=== PATIENT | female | born 2000 | race Caucasian/White ===

== ENCOUNTER 2022-02-04 16:39 | Observation (INO) | payer BC, OTHER ==
[2022-02-04] MEDS ORDERED: dexAMETHasone 4 MG TAB PO STA (17:07)
[2022-02-04] MEDS ORDERED: SODIUM CHLORIDE 0.9% 1,000 ML IV STA (17:08)
--- NOTE | 2022-02-04 17:17 | ED ---
General Adult HPI - General Chief complaint: Shortness of Breath Stated complaint: SOB,Headache,Congestion Time Seen by Provider: 02/04/22 16:47 Source: patient Mode of arrival: ambulatory Limitations: no limitations - History of Present Illness Initial comments: Dictation was produced using [employer] dictation software. please excuse any grammatical, word or spelling errors. Chief Complaint: 21-year-old female past medical history of asthma presents with worsening shortness of breath History of Present Illness: Patient is a 21-year-old female she is accompanied by mother. Patient is a history of asthma. She's been sick for the last 2-3 days. Patient was at urgent care earlier today where she was treated with a breathing treatment and IM injection of Solu-Medrol. Patient was told that she should go to the hospital for symptoms do not improve. Patient was at the urgent care 945 this morning. Patient does not feel any better and decided to come to the emergency room for further testing. She had swabbed for influenza a nd covered however she does not know the results of that. She also reports having had a 2 view chest x-ray that was allegedly unremarkable. Patient was not offered antibiotics. She reports associated nasal and chest congestion. She has a productive cough. The ROS documented in this emergency department record has been reviewed and confirmed by me. Those systems with pertinent positive or negative responses have been documented in the HPI. All other systems are other negative and/or noncontributory. PHYSICAL EXAM: General Impression: Alert and oriented x3, not in acute distress HEENT: Normocephalic atraumatic, extra-ocular movements intact, pupils equal and reactive to light bilaterally, mucous membranes moist. Cardiovascular: Heart regular rate and rhythm Chest: Able to complete full sentences, no retractions, no tachypnea, mild adnexal 3 wheezing Abdomen: abdomen soft, non-tender, non-distended, no organomegaly Musculoskeletal: Pulses present and equal in all extremities, no peripheral edema Motor: no focal deficits noted Neurological: CN II-XII grossly intact, no focal motor or sensory deficits noted Skin: Intact with no visualized rashes Psych: Normal affect and mood ED course: 21-year-old female presents emergency Department with 2-3 days of respiratory infectious symptoms with asthma exacerbation. Signs upon arrival shows heart rate 136, respiratory rate of 26, 92% on room air. Nursing notes and chart review was performed Laboratory evaluation obtained. Mild leukocytosis of 13.3. Metabolic panel is unremarkable. Panel labs negative. 4 panel viral PCR is negative. Chest x-ray is nonacute. Patient bedside after breathing treatment and Decadron. She still appears to be dyspneic. Lungs are significantly wheezy still. Disposition options were discussed with patient she is agreeable for observation admission with consultation pulmonology and further asthma care. My EKG interpretation: Ventricular rate 155, sinus tachycardia, VT interval 123, QRS 80, QTC 361. No VT prolongation, no QTC prolongation, no ST or T-wave changes noted. Critical care time 33 minutes - Related Data Home Medications Medication Instructions Recorded Confirmed Albuterol Inhaler [Ventolin Hfa 2 puff INHALATION RT-Q4H PRN 02/04/22 02/04/22 Inhaler] [id number]-Qu-Fs 03/09 1 tab PO DAILY 02/04/22 02/04/22 Allergies Allergy/AdvReac Type Severity Reaction Status Date / Time No Known Allergies Allergy Verified 02/04/22 16:45 Review of Systems ROS Statement: Those systems with pertinent positive or pertinent negative responses have been documented in the HPI. ROS Other: All systems not noted in ROS Statement are negative. Past Medical History Past Medical History: Asthma History of Any Multi-Drug Resistant Organisms: None Reported Past Surgical History: No Surgical Hx Reported Past Psychological History: No Psychological Hx Reported Smoking Status: Never smoker Past Alcohol Use History: Occasional Past Drug Use History: None Reported General Exam Limitations: no limitations Course Vital Signs 02/04/22 02/04/22 02/04/22 16:40 18:58 19:14 Temperature 98 F Pulse Rate 136 H 133 H 151 H Respiratory 26 H Rate Blood Pressure 137/83 O2 Sat by Pulse 92 L Oximetry 02/04/22 19:21 Temperature Pulse Rate 152 H Respiratory 22 Rate Blood Pressure 118/62 O2 Sat by Pulse 93 L Oximetry Medical Decision Making - Lab Data Result diagrams: 02/04/22 19:21 02/04/22 17:52 Lab Results 02/04/22 02/04/22 02/04/22 Range/Units 17:52 17:53 19:21 WBC 13.3 H (3.8-10.6) k/uL RBC 4.74 (3.80-5.40) m/uL Hgb 14.5 (11.4-16.0) gm/dL Hct 41.9 (34.0-46.0) % MCV 88.5 (80.0-100.0) fL MCH 30.6 (25.0-35.0) pg MCHC 34.5 (31.0-37.0) g/dL RDW 12.7 (11.5-15.5) % Plt Count 335 (150-450) k/uL MPV 8.3 Neutrophils % 92 % Lymphocytes % 6 % Monocytes % 1 % Eosinophils % 0 % Basophils % 0 % Neutrophils # 12.3 H (1.3-7.7) k/uL Lymphocytes # 0.8 L (1.0-4.8) k/uL Monocytes # 0.2 (0-1.0) k/uL Eosinophils # 0.1 (0-0.7) k/uL Basophils # 0.0 (0-0.2) k/uL Sodium 143 (137-145) mmol/L Potassium 4.3 (3.5-5.1) mmol/L Chloride 108 H (98-107) mmol/L Carbon Dioxide 20 L (22-30) mmol/L Anion Gap 15 mmol/L BUN 13 (7-17) mg/dL Creatinine 0.70 (0.52-1.04) mg/dL Est GFR (CKD-EPI)AfAm >90 (>60 ml/min/1.73 sqM) Est GFR (CKD-EPI)NonAf >90 (>60 ml/min/1.73 sqM) Glucose 170 H (74-99) mg/dL Calcium 9.7 (8.4-10.2) mg/dL Total Bilirubin 0.3 (0.2-1.3) mg/dL AST 24 (14-36) U/L ALT 28 (4-34) U/L Alkaline Phosphatase 74 (38-126) U/L Total Protein 8.5 H (6.3-8.2) g/dL Albumin 4.8 (3.5-5.0) g/dL HCG, Quant <2.4 mIU/mL Influenza Type A (PCR) Not Detected (Not Detectd) Influenza Type B (PCR) Not Detected (Not Detectd) RSV (PCR) Not Detected (Not Detectd) SARS-CoV-2 (PCR) Not Detected (Not Detectd) Disposition Clinical Impression: Asthma exacerbation Disposition: ADMITTED IP TO THIS HOSP Condition: Serious Referrals: Qamar Zapata DO [Primary Care Provider] - 1-2 days Decision Time: 19:46
--- NOTE | 2022-02-04 17:44 | XR ---
EXAMINATION TYPE: XR chest 2V DATE OF EXAM: 02/04/2022 5:34 PM COMPARISON: None TECHNIQUE: XR chest 2V Frontal and lateral views of the chest. CLINICAL INDICATION:Female, 21 years old with history of wheezing; FINDINGS: Lungs/Pleura: There is no evidence of pleural effusion, focal consolidation, or pneumothorax. Pulmonary vascularity: Unremarkable. Heart/mediastinum: Cardiomediastinal silhouette is unremarkable. Musculoskeletal: No acute osseous pathology. IMPRESSION: No acute cardiopulmonary disease/process.
[2022-02-04 18:24] LABS: AST 24 U/L (14-36); African American GFR (CKD) >90 (>60 ml/min/1.73 sqM); Albumin 4.8 g/dL (3.5-5.0); Alkaline Phosphatase 74 U/L (38-126); Anion Gap 15 mmol/L; Blood Urea Nitrogen 13 mg/dL (7-17); Calcium 9.7 mg/dL (8.4-10.2); Carbon Dioxide 20 mmol/L (22-30); Chloride 108 mmol/L (98-107); Glucose 170 mg/dL (74-99); Non-African American GFR(CKD) >90 (>60 ml/min/1.73 sqM); Potassium 4.3 mmol/L (3.5-5.1); Sodium 143 mmol/L (137-145); Total Bilirubin 0.3 mg/dL (0.2-1.3); Total Protein 8.5 g/dL (6.3-8.2)
[2022-02-04 18:35] LABS: ALT 28 U/L (4-34)
[2022-02-04 18:41] LABS: HCG,Quantitative Serum <2.4 mIU/mL
[2022-02-04] MEDS ORDERED: IPRATROPIUM-ALBUTEROL 3 ML NEB INHALATION STA (18:46)
[2022-02-04 19:36] LABS: Basophils % (A) 0 %; Eosinophils # (A) 0.1 k/uL (0-0.7); Eosinophils % (A) 0 %; HCT 41.9 % (34.0-46.0); HGB 14.5 gm/dL (11.4-16.0); Lymphocytes # (A) 0.8 k/uL (1.0-4.8); Lymphocytes % (A) 6 %; MCH 30.6 pg (25.0-35.0); MCHC 34.5 g/dL (31.0-37.0); MCV 88.5 fL (80.0-100.0); Mean Platelet Volume 8.3; Monocytes # (A) 0.2 k/uL (0-1.0); Monocytes % (A) 1 %; Neutrophils # (A) 12.3 k/uL (1.3-7.7); Neutrophils % (A) 92 %; Platelet Count 335 k/uL (150-450); RBC 4.74 m/uL (3.80-5.40); RDW 12.7 % (11.5-15.5); WBC 13.3 k/uL (3.8-10.6)
[2022-02-04] MEDS ORDERED: ACETAMINOPHEN TAB 325 MG TAB PO PRN (19:43)
[2022-02-04] MEDS ORDERED: NALOXONE 0.4 MG/ML 1 ML VIAL IVP PRN (19:43)
[2022-02-04] MEDS ORDERED: IPRATROPIUM-ALBUTEROL 3 ML NEB INHALATION SCH (20:00)
[2022-02-04] MEDS ORDERED: METOPROLOL TARTRATE 25 MG TAB PO STA (20:56)
[2022-02-04] MEDS ORDERED: ALBUTEROL NEBULIZED 2.5 MG/3 ML INHALATION PRN (20:56)
[2022-02-04] MEDS ORDERED: IPRATROPIUM-ALBUTEROL 3 ML NEB INHALATION PRN (20:57)
[2022-02-04] MEDS ORDERED: SODIUM CHLORIDE 0.9% 1,000 ML IV SCH (21:00)
[2022-02-04] MEDS ORDERED: AZITHROMYCIN 500 MG TAB PO SCH (21:00)
[2022-02-05] MEDS: IPRATROPIUM-ALBUTEROL 3 ML NEB INHALATION SCH ×2 (07:36→11:21)
[2022-02-05 08:13] VITALS: BP 111/76; RESP 16; TEMP 97.5
[2022-02-05] MEDS ORDERED: SYMBICORT 160-4.5 MCG INHALER INHALATION SCH (08:30)
[2022-02-05] MEDS ORDERED: predniSONE 20 MG TAB PO SCH (09:00)
[2022-02-05 11:34] VITALS: PULSE 104
--- NOTE | 2022-02-05 12:13 | P.CNPUL ---
History of Present Illness Consult date: 02/05/22 Requesting physician: Aneta Brasher Reason for consult: asthma Chief complaint: Shortness of breath, cough, congestion History of present illness: This is a very pleasant 21-year-old female patient with a known history of mild intermittent chronic bronchial asthma and is maintained on albuterol HFA only. She states she has been asthmatic for just a few years. She is triggered by cats, dogs and cold air usually. She is a nonsmoker. She has a 2-3 day history of increasing shortness of breath cough congestion on chest tightness and wheezing. She presented here to the emergency room yesterday for the same. A chest x-ray reveals no acute cardiopulmonary process. White count 13.3. Hemog lobin 14.5. Sodium 143. Potassium 4.3. BUN 13. Creatinine 0.70. Glucose 170. HCG was negative. Influenza screen negative. RSV screen negative. COVID-19 screen negative. She was initiated on DuoNeb inhalations. 0.9 normal saline at 50 MLS per hour. She is seen today in consultation on the regular medical floor. She is sitting up in bed. Awake and alert in no acute distress. Maintaining good O2 saturations in the 90s on 1 L of oxygen per nasal cannula. She's afebrile. Slightly tachycardic. No worsening shortness of breath, cough or congestion still with some bilateral end expiratory wheeze. Review of Systems REVIEW OF SYSTEMS: CONSTITUTIONAL: Denies any recent significant weight loss or weight gain. EYES: Denies change in vision. EARS, NOSE, MOUTH, THROAT: Denies headaches, denies sore throat. CARDIOVASCULAR: Denies chest pain, palpitations or syncopal episodes. RESPIRATORY: Positive for shortness of breath, cough, congestion no hemoptysis. GASTROINTESTINAL: Denies change in appetite, denies abdominal pain GENITOURINARY: Denies hematuria, denies infections. MUSKULOSKELETAL: Denies pain, denies swelling. INTEGUMENTARY: Denies rash, denies eczema. NEUROLOGICAL: Denies recent memory loss, no recent seizure activity. PSYCHIATRIC: Denies anxiety, denies depression. HEMATOLOGIC/LYMPHATIC: Denies anemia, denies enlarged lymph nodes. Past Medical History Past Medical History: Asthma History of Any Multi-Drug Resistant Organisms: None Reported Past Surgical History: No Surgical Hx Reported Past Psychological History: No Psychological Hx Reported Smoking Status: Never smoker Past Alcohol Use History: Occasional Past Drug Use History: None Reported Medications and Allergies Home Medications Medication Instructions Recorded Confirmed Type Albuterol Inhaler [Ventolin Hfa 2 puff INHALATION RT-Q4H PRN 02/04/22 02/04/22 History Inhaler] Mpxyki-Bj-[id number] 03/09 1 tab PO DAILY 02/04/22 02/04/22 History Allergies Allergy/AdvReac Type Severity Reaction Status Date / Time No Known Allergies Allergy Verified 02/04/22 16:45 Physical Exam Vitals: Vital Signs Temp Pulse Pulse Resp BP BP Pulse Ox 02/05/22 11:34 104 H 02/05/22 11:22 100 02/05/22 07:46 107 H 02/05/22 07:45 97.5 F L 125 H 16 111/76 94 L 02/05/22 07:41 95 02/05/22 07:36 103 H 02/05/22 07:10 93 20 113/79 93 L 02/05/22 06:48 98 02/05/22 06:12 116 H 02/05/22 06:03 97.9 F 02/05/22 05:57 123 H 92 L 02/05/22 05:23 94 L 02/05/22 05:10 90 20 129/74 92 L 02/05/22 04:03 89 92 L 02/05/22 03:45 95 92 L 02/05/22 02:57 98 108/72 92 L 02/05/22 01:16 103 H 22 99/57 92 L 02/05/22 00:10 116 H 20 107/59 92 L 02/04/22 23:00 116 H 16 103/58 92 L 02/04/22 22:00 107 H 16 104/64 92 L 02/04/22 21:00 135 H 16 113/68 94 L 02/04/22 20:00 147 H 16 126/68 94 L 02/04/22 19:21 152 H 22 118/62 93 L 02/04/22 19:14 151 H 02/04/22 18:58 133 H 02/04/22 16:40 98 F 136 H 26 H 137/83 92 L Intake and Output 02/04/22 02/05/22 02/05/22 22:59 06:59 14:59 Other: Weight 97.522 kg GENERAL EXAM: Alert, pleasant 21-year-old female, on 1 L nasal cannula, sitting up in bed, comfortable in no apparent distress. HEAD: Normocephalic. EYES: Normal reaction of pupils, equal size. NOSE: Clear with pink turbinates. THROAT: No erythema or exudates. NECK: No masses, no JVD. CHEST: No chest wall deformity. LUNGS: Equal air entry with bilateral end expiratory wheeze. CVS: S1 and S2 normal with no audible murmur, regular rhythm. ABDOMEN: No hepatosplenomegaly, normal bowel sounds, no guarding or rigidity. SPINE: No scoliosis or deformity SKIN: No rashes CENTRAL NERVOUS SYSTEM: No focal deficits, tone is normal in all 4 extremities. EXTREMITIES: There is no peripheral edema. No clubbing, no cyanosis. Peripheral pulses are intact. Results - Laboratory Findings CBC and BMP: 02/04/22 19:21 02/04/22 17:52 Abnormal lab findings: Abnormal Labs 02/04/22 02/04/22 17:52 19:21 WBC 13.3 H Neutrophils # 12.3 H Lymphocytes # 0.8 L Chloride 108 H Carbon Dioxide 20 L Glucose 170 H Total Protein 8.5 H - Diagnostic Findings Chest x-ray: image reviewed (No acute pulmonary process) Assessment and Plan Assessment: Acute hypoxemic respiratory failure secondary to an acute exacerbation of mild intermittent chronic bronchial asthma History of mild intermittent chronic bronchial asthma Plan: The patient was seen and evaluated Chest x-ray, labs and medications reviewed Initiate Symbicort, Singulair Continue empiric antibiotics Continue prednisone taper Could be discharged home later today or tomorrow morning Would benefit from an outpatient workup in our office for pulmonary function testing We will continue to follow and make further recommendations based on her clinical status I have personally seen and examined the patient, performed the documentation and the assessment and plan as written. Number of minutes spent on the visit: 20.
--- NOTE | 2022-02-05 15:55 | P.HPIM ---
History of Present Illness H&P Date: 02/05/22 This is a pleasant 21-year-old female who presented to the emergency department with increasing shortness of breath with a history of asthma. Patient reports she had been having some congestion and feeling sick over the last 2 or 3 days and was seen in an urgent care given a breathing treatment and a steroid injection. Patient does have a past medical history of asthma and follows with Dr. Zapata in the outpatient setting. Patient does use inhalers although does not use nebulized treatments and also reports she has been using her inhalers more often with no relief. Patient was swabbed for influenza and Covid at the urgent care although does not know the results. Patient is wheezy and was started on oral steroids along with breathing treatments and placed on supplemental oxygen. Patient was 94% on 1 L and encourage the patient to take the oxygen off as she does not normally wear this outpatient and assess for any increased shortness of breath. Encouraged increased activity as well. Patient was admitted for asthma exacerbation with pulmonary on consult. Chest x-ray showed no acute cardiopulmonary process. EKG showed sinus tach. Covid, RSV, influenza testing here was negative. Review Of Systems: Constitutional: No fever, no chills, no night sweats. No weight change. No weakness, fatigue or lethargy. No daytime sleepiness. EENT: No headache. No blurred vision or double vision, no loss of vision. No loss of Hearing, no ringing in the ears, no dizziness. No nasal drainage or congestion. No epistaxis. No sore throat. Lungs: Reports of shortness of breath, cough cough, no sputum production. Reports wheezing. Cardiovascular: No chest pain, no lower extremity edema. No palpitations. No paroxysmal nocturnal dyspnea. No orthopnea. No lightheadedness or dizziness. No syncopal episodes. Abdominal: No abdominal pain. No nausea, vomiting. No diarrhea. No constipation. No bloody or tarry stools.. No loss of appetite. Genitourinary: No dysuria, increased frequency, urgency. No urinary retention. Musculoskeletal: No myalgias. No muscle weakness, no gait dysfunction, no frequent falls. No back pain. No neck pain. Integumentary: No wounds, no lesions. No rash or pruritus. No unusual bruising. No change in hair or nails. Neurologic: No aphasia. No facial droop. No change in mentation. No head injury. No headache. No paralysis. No paresthesia. Psychiatric: No depression. No anxiety. No mood swings. Endocrine: No abnormal blood sugars. No weight change. No excessive sweating or thirst. No cold intolerance. PHYSICAL EXAMINATION: GENERAL: The patient is alert and oriented x4, Well developed, well nourished. Obese HEENT: Pupils are round and equally reacting to light. EOMI. no scleral icterus. No conjunctival pallor. Normocephalic, atraumatic. No pharyngeal erythema. No thyromegaly. CARDIOVASCULAR: S1 and S2 muffled PULMONARY: diminished breath sounds bilaterally with some expiratory wheezing noted. ABDOMEN: soft. Nontender on exam. obese. non-distended, normoactive bowel sounds. No palpable organomegaly. MUSCULOSKELETAL: No joint swelling or deformity. EXTREMITIES: No cyanosis, clubbing, or pedal edema. NEUROLOGICAL: Gross neurological examination did not reveal any focal deficits. SKIN: No rashes. Assessment: Shortness of breath secondary to mild intermittent chronic bronchial asthma exacerbation Acute hypoxemic respiratory failure secondary to above Obesity with a BMI of 34.7 Mild Leukocytosis, most likely reactive secondary to steroid-induced GI prophylaxis DVT prophylaxis Full code Plan: Recommend to continue with current medications and management with pulmonary consulted and following. Patient was started on IV steroids and will be transitioned oral prednisone taper and also on breathing treatments and patient does use albuterol in the outpatient setting. Pulmonary recommending starting on Symbicort and follow-up outpatient once breathing is stable for further testing. Patient encouraged to increase activity as tolerated and monitor off oxygen. Patient was given Zithromax and will complete a short course on discharge and recommend follow-up with pulmonary along with primary care provider this week. Patient encouraged to rest and continue with fluid hydration and monitor for any fevers or worsening shortness of breath. Patient will likely be discharged later today. The impression and plan of care has been dictated by Erna Herman, nurse practitioner as directed. Dr. Sabino VEE I have performed a history and examination and MDM of this patient, discussed the same with the dictator, and agree with the dictator's assessment and plan as written ,documented as a scribe. Based on total visit time, I have performed more than 50% of the visit. Any additional findings or plans will be noted. Past Medical History Past Medical History: Asthma History of Any Multi-Drug Resistant Organisms: None Reported Past Surgical History: No Surgical Hx Reported Past Psychological History: No Psychological Hx Reported Smoking Status: Never smoker Past Alcohol Use History: Occasional Past Drug Use History: None Reported Medications and Allergies Home Medications Medication Instructions Recorded Confirmed Type Albuterol Inhaler [Ventolin Hfa 2 puff INHALATION RT-Q4H PRN 02/04/22 02/04/22 History Inhaler] [id number]-Da-Sh 03/09 1 tab PO DAILY 02/04/22 02/04/22 History Azithromycin [Zithromax] 500 mg PO HS 3 Days #3 tab 02/05/22 Rx Budesonide-Formot 160-4.5 Mcg 2 puff INHALATION RT-BID 30 Days 02/05/22 Rx [Symbicort 160-4.5 Mcg Inhaler] #1 each Montelukast [Singulair] 10 mg PO HS 30 Days #30 tab 02/05/22 Rx predniSONE 10 mg PO DIRECTED #30 tab 02/05/22 Rx Allergies Allergy/AdvReac Type Severity Reaction Status Date / Time No Known Allergies Allergy Verified 02/04/22 16:45 Physical Exam Vitals: Vital Signs Temp Pulse Pulse Resp BP BP Pulse Ox 02/05/22 11:34 104 H 02/05/22 11:22 100 02/05/22 07:46 107 H 02/05/22 07:45 97.5 F L 125 H 16 111/76 94 L 02/05/22 07:41 95 02/05/22 07:36 103 H 02/05/22 07:10 93 20 113/79 93 L 02/05/22 06:48 98 02/05/22 06:12 116 H 02/05/22 06:03 97.9 F 02/05/22 05:57 123 H 92 L 02/05/22 05:23 94 L 02/05/22 05:10 90 20 129/74 92 L 02/05/22 04:03 89 92 L 02/05/22 03:45 95 92 L 02/05/22 02:57 98 108/72 92 L 02/05/22 01:16 103 H 22 99/57 92 L 02/05/22 00:10 116 H 20 107/59 92 L 02/04/22 23:00 116 H 16 103/58 92 L 02/04/22 22:00 107 H 16 104/64 92 L 02/04/22 21:00 135 H 16 113/68 94 L 02/04/22 20:00 147 H 16 126/68 94 L 02/04/22 19:21 152 H 22 118/62 93 L 02/04/22 19:14 151 H 02/04/22 18:58 133 H 02/04/22 16:40 98 F 136 H 26 H 137/83 92 L Intake and Output 02/04/22 02/05/22 02/05/22 22:59 06:59 14:59 Other: Weight 97.522 kg 97.522 kg Results CBC & Chem 7: 02/04/22 19:21 02/04/22 17:52 Labs: Abnormal Lab Results - Last 24 Hours (Table) 02/04/22 02/04/22 Range/Units 17:52 19:21 WBC 13.3 H (3.8-10.6) k/uL Neutrophils # 12.3 H (1.3-7.7) k/uL Lymphocytes # 0.8 L (1.0-4.8) k/uL Chloride 108 H (98-107) mmol/L Carbon Dioxide 20 L (22-30) mmol/L Glucose 170 H (74-99) mg/dL Total Protein 8.5 H (6.3-8.2) g/dL Assessment and Plan Time with Patient: Greater than 30
[2022-02-05] MEDS ORDERED: MONTELUKAST 10 MG TAB PO SCH (21:00)
--- NOTE | 2022-02-07 04:45 | P.DS ---
Providers Date of admission: 02/04/22 19:43 Expected date of discharge: 02/05/22 Attending physician: Aneta Brasher Consults: 02/04/22 19:43 Consult Physician Routine Consulting Provider: Emely Gonzalez Consult Reason/Comments: asthma Do you want consulting provider notified?: Yes Primary care physician: Qamar Zapata Hospital Course: Final diagnosis Shortness of breath secondary to mild intermittent chronic bronchial asthma exacerbation Acute hypoxemic respiratory failure secondary to above Obesity with a BMI of 34.7 Mild Leukocytosis, most likely reactive secondary to steroid-induced GI prophylaxis DVT prophylaxis Full code Discharge disposition Patient is being discharged in a stable condition with guarded prognosis to home. Patient will follow-up with Dr. Zapata in the outpatient setting upon discharge. Patient is to also follow up with pulmonary outpatient as scheduled. Patient will continue on Symbicort and prednisone taper Total time taken is greater than 35 minutes. Hospital course This is a 21-year-old female who was recently admitted with increased shortness of breath with asthma exacerbation. Patient was placed on oxygen and DuoNeb treatments and reports to feeling better. Patient was evaluated by pulmonary recommending Symbicort and prednisone taper close outpatient follow-up and further PFT testing. Patient was also started on empiric antibiotics and will continue to complete the course. Recommend close outpatient follow-up with primary care provider this week as well. Currently no reports of chest pain, worsening shortness of breath, or palpitations. Patient is afebrile. No reports of nausea or vomiting and patient is tolerating diet. Patient will be discharged home today. Physical exam: Gen: This is a 21-year-old female who is awake, alert and oriented 3, well- developed, well-nourished, obese HEENT: Head is atraumatic, normocephalic. Pupils equal, round. Sclerae is anicteric. NECK: Supple. No JVD. No lymphadenopathy. No thyromegaly. LUNGS: Diminished breath sounds bilaterally with some intermittent expiratory wheezing noted on exam. No intercostal retractions. HEART: Regular rate and rhythm. No murmur. ABDOMEN: Soft.Obese. Bowel sounds are present. No masses. No tenderness. EXTREMITIES: No pedal edema. No calf tenderness. NEUROLOGICAL: Patient is awake, alert and oriented x3. Cranial nerves 2 through 12 are grossly intact. Please refer to medication reconciliation sheet for a list of medications. The impression and plan of care has been dictated by Erna Herman, Nurse Practitioner as directed. MD Abisai I have performed a history and examination and MDM of this patient, discussed the same with the dictator, and agree with the dictator's assessment and plan as written ,documented as a scribe. Based on total visit time, I have performed more than 50% of the visit. Patient Condition at Discharge: Stable Plan - Discharge Summary New Discharge Prescriptions: New Montelukast [Singulair] 10 mg PO HS 30 Days #30 tab predniSONE 10 mg PO DIRECTED #30 tab Budesonide-Formot 160-4.5 Mcg [Symbicort 160-4.5 Mcg Inhaler] 2 puff INHALATION RT-BID 30 Days #1 each Azithromycin [Zithromax] 500 mg PO HS 3 Days #3 tab Continue Qiqaoj-Mk-Kn 03/09 1 tab PO DAILY Albuterol Inhaler [Ventolin Hfa Inhaler] 2 puff INHALATION RT-Q4H PRN PRN Reason: Shortness Of Breath Discharge Medication List Albuterol Inhaler [Ventolin Hfa Inhaler] 2 puff INHALATION RT-Q4H PRN 02/04/22 [History] Cihyeb-Ww-Io 03/09 1 tab PO DAILY 02/04/22 [History] Azithromycin [Zithromax] 500 mg PO HS 3 Days #3 tab 02/05/22 [Rx] Budesonide-Formot 160-4.5 Mcg [Symbicort 160-4.5 Mcg Inhaler] 2 puff INHALATION RT-BID 30 Days #1 each 02/05/22 [Rx] Montelukast [Singulair] 10 mg PO HS 30 Days #30 tab 02/05/22 [Rx] predniSONE 10 mg PO DIRECTED #30 tab 02/05/22 [Rx] Follow up Appointment(s)/Referral(s): Regina Gilbert MD [STAFF PHYSICIAN] - 02/22/22 9:00 am Qamar Zapata DO [Primary Care Provider] - 1-2 days Patient Instructions/Handouts: Asthma (DC) Activity/Diet/Wound Care/Special Instructions: activity limited until follow up follow up with pcp on discharge follow up with pulmonary on discharge continue prednisone on discharge and taper as instructed continue with inhaler Discharge Disposition: HOME SELF-CARE
== END 2022-02-05 14:45 | disposition home or self-care (01) ==
LOC: EC 16:39 → 6NMEDSUR 19:43
PROVIDERS: ADMIT Hospitalist; ATTEND Hospitalist
DX: J45.901 Unspecified asthma with (acute) exacerbation (principal); J96.01 Acute respiratory failure with hypoxia; D72.829 Elevated white blood cell count, unspecified; E66.9 Obesity, unspecified; Z68.34 Body mass index [BMI] 34.0-34.9, adult; Z79.51 Long term (current) use of inhaled steroids; Z79.899 Other long term (current) drug therapy; Z20.822 Contact with and (suspected) exposure to COVID-19
CPT/HCPCS: 99285; 36415; 94640 ×3; 94760; 93005; 80053; 84443; 85025; 84702; 87636; 71046; G0378 ×2; J8540; J7512